=== PATIENT | female | born 1965 | race Caucasian/White ===

== ENCOUNTER 2019-10-07 10:25 | Inpatient (IN) | payer BC, MEDICAID ==
[~2019-10-07] VITALS: Ht 162.6 cm; Wt 80.0 kg
[~2019-10-07 10:25] MED LIST: ALBU8.5H8 INH; BENA10TA75 PO; CALC-235 PO; CETI10CA19 PO; FAMO20TA8 PO; FLUT16SP26 BOTHNARES; LACT1CAP26 PO; LEVO750T46 PO; METF-436 PO; METR-159 PO; OMEP40CA13 PO; ONDA4TAB12 PO; OXYC-134 PO; PANT-47 PO; VITA1CAP19 PO
[2019-10-07 11:12] LABS: BASOPHILS % (AUTO) 0.7 % (0-1); EOSINOPHILS # (AUTO) 0.1 X10'3 (0-0.9); EOSINOPHILS % (AUTO) 1.1 % (0-6); HEMATOCRIT 45.7 % (35.0-45.0); HEMOGLOBIN 15.8 g/dl (12.0-16.0); LYMPHOCYTES # (AUTO) 1.9 X10'3 (1.1-4.8); LYMPHOCYTES % (AUTO) 31.6 % (21-51); MEAN CORPUSCULAR HGB CONC 34.5 g/dL (33.0-36.5); MEAN CORPUSCULAR VOLUME 104.3 FL (78-98); MEAN PLATELET VOLUME 6.9 FL (7.4-10.4); MONOCYTES # (AUTO) 0.6 X10'3 (0-0.9); MONOCYTES % (AUTO) 10.1 % (2-12); NEUTROPHILS # (AUTO) 3.4 X10'3 (1.8-7.7); NEUTROPHILS % (AUTO) 56.5 % (42-75); PLATELET COUNT 215 X10'3 (140-440); RED BLOOD COUNT 4.38 X10'6 (4.20-5.60); RED CELL DISTRIBUTION WIDTH 13.3 % (11.5-14.5)
[2019-10-07 11:24] LABS: CLARITY,URINE SLIGHTLY CLOUDY (Clear); COLOR,URINE YELLOW (Yellow); GLUCOSE, URINE NEGATIVE (Neg); KETONES,URINE NEGATIVE (Neg); LEUKOCYTE ESTERASE ,URINE NEGATIVE (Neg); NITRITES, URINE NEGATIVE (Neg); OCCULT BLOOD,URINE NEGATIVE (Neg); PROTEIN,URINE NEGATIVE (Neg); UROBILINOGEN,URINE 0.2 E.U/dL (0.2-1.0)
[2019-10-07 11:24] LABS: PARTIAL THROMBOPLASTIN TIME 28 SECONDS (22-32)
[2019-10-07 11:28] LABS: ALANINE AMINOTRANSFERASE 24 U/L (12-78); ALBUMIN 3.8 G/DL (3.4-5.0); ALBUMIN/GLOBULIN RATIO 1.1 (1.1-1.5); ALKALINE PHOSPHATASE 84 IU/L (46-116); ANION GAP 6 (8-16); ASPARTATE AMINO TRANSFERASE 24 U/L (10-37); BILIRUBIN,TOTAL 0.4 MG/DL (0.1-1.0); BLOOD UREA NITROGEN 15 MG/DL (7-18); BUN/CREATININE RATIO 18.1 (6.6-38.0); CALCIUM 9.2 MG/DL (8.5-10.1); CHLORIDE 104 MMOL/L (99-107); CREATININE 0.83 MG/DL (0.40-0.90); GLUCOSE 96 MG/DL (70-104); POTASSIUM 4.3 MMOL/L (3.5-5.1); SODIUM 142 MMOL/L (135-145); TOTAL CARBON DIOXIDE 32.3 MMOL/L (24-32); TOTAL PROTEIN 7.3 G/DL (6.4-8.2); eGFR 71 ML/MIN
[2019-10-07 11:30] LABS: TROPONIN I < 0.04 NG/ML (0.0-0.05)
[2019-10-07 11:38] LABS: UA COLLECTION TYPE CLN CATCH MIDSTREAM
[2019-10-07 11:40] LABS: SQUAMOUS EPITHELIAL CELL,UR MODERATE /LPF (FEW)
[2019-10-07 11:41] LABS: BACTERIA,URINE FEW /HPF (Neg)
[2019-10-07 11:42] LABS: WBC,URINE 0-4 /HPF (0-4)
[2019-10-07 11:47] LABS: RBC,URINE 0-2 /HPF (0-2)
[2019-10-07] MEDS ORDERED: LACT1CAP65 PO (13:47)
[2019-10-07] MEDS ORDERED: CHOL100046 PO (13:47)
--- NOTE | 2019-10-07 13:57 | NUR ---
Pt ambulatory with steady gait to the restroom to void urine.
--- NOTE | 2019-10-07 15:08 | NUR ---
Pt is awaiting tele stroke evaluation by Neurologist. Telestroke monitor at the foot of the bedside.
--- NOTE | 2019-10-07 15:20 | NUR ---
Telestroke evaluation is being completed at this time with
--- NOTE | 2019-10-07 15:33 | NUR ---
Awaiting admission orders now that the tele stroke evaluation has been completed. Pt is aware the plan of care includes admission and further testing of the brain and vascular components of the brain per the Tele neurologist.
--- NOTE | 2019-10-07 17:55 | NUR ---
PAGER ID: [phone] MESSAGE: [id number] [place] [id number]- her med rec is complete, please address. Pt is doing well with no deficits at this time
[2019-10-07 18:00] VITALS: BP 124/61
[2019-10-07] MEDS ORDERED: magnesium hydroxide 30ml (MOM) UD suspension PO PRN (18:00)
[2019-10-07] MEDS ORDERED: magnesium 4gm in 100ml NS 100 ML IV PRN (18:00)
[2019-10-07] MEDS ORDERED: diphenhydrAMINE 25mg capsule PO PRN (18:00)
[2019-10-07] MEDS ORDERED: mag hydrox/Alum hydrox/simeth 30ml oral suspension PO PRN (18:00)
[2019-10-07] MEDS ORDERED: potassium Cl 20 mEq SR tablet PO PRN ×2 (18:00)
[2019-10-07] MEDS: K and/or MAG REPLACEMENT MC SCH (18:00)
[2019-10-07] MEDS ORDERED: magnesium Cl slow-release 64mg tablet PO PRN (18:00)
[2019-10-07] MEDS ORDERED: magnesium 2GM in 50ml NS 50 ML IV PRN (18:00)
[2019-10-07] MEDS ORDERED: potassium CL 10mEq/100ml bag 100 ML IV PRN ×2 (18:00)
[2019-10-07] MEDS ORDERED: ondansetron/PF 4mg/2ml inj IV PRN (18:00)
[2019-10-07 18:08] LABS: HEMOGLOBIN A1C 5.5 % (4.5-6.2)
[2019-10-07] MEDS ORDERED: aspirin 325mg tablet PO ONE (18:15)
[2019-10-07] MEDS: normal saline 1000ml 1,000 ML IV SCH (19:18)
[2019-10-07] MEDS: heparin, porcine 5000 units/ml vial SQ SCH (19:24)
[2019-10-07 20:00] VITALS: BP_SYST 132; BP_SYST 137; BP_SYST 146; BP_DIAS 84; BP_DIAS 88; BP_DIAS 92
[2019-10-07 22:00] VITALS: BP 132/84
[2019-10-08 02:05] VITALS: BP 127/63
[2019-10-08] MEDS: normal saline 1000ml 1,000 ML IV SCH (04:42)
[2019-10-08 06:00] VITALS: BP 128/71
[2019-10-08 06:11] LABS: BASOPHILS % (AUTO) 0.6 % (0-1); EOSINOPHILS # (AUTO) 0.1 X10'3 (0-0.9); EOSINOPHILS % (AUTO) 2.7 % (0-6); HEMATOCRIT 43.3 % (35.0-45.0); HEMOGLOBIN 14.8 g/dl (12.0-16.0); LYMPHOCYTES # (AUTO) 1.5 X10'3 (1.1-4.8); LYMPHOCYTES % (AUTO) 29.1 % (21-51); MEAN CORPUSCULAR HEMOGLOBIN 35.7 PG (27.0-31.0); MEAN CORPUSCULAR HGB CONC 34.2 g/dL (33.0-36.5); MEAN CORPUSCULAR VOLUME 104.2 FL (78-98); MEAN PLATELET VOLUME 7.1 FL (7.4-10.4); MONOCYTES # (AUTO) 0.6 X10'3 (0-0.9); MONOCYTES % (AUTO) 10.9 % (2-12); NEUTROPHILS # (AUTO) 2.9 X10'3 (1.8-7.7); NEUTROPHILS % (AUTO) 56.7 % (42-75); PLATELET COUNT 185 X10'3 (140-440); RED BLOOD COUNT 4.16 X10'6 (4.20-5.60); RED CELL DISTRIBUTION WIDTH 13.4 % (11.5-14.5); WHITE BLOOD COUNT 5.1 X10'3 (4.5-11.0)
[2019-10-08 06:25] LABS: ALANINE AMINOTRANSFERASE 20 U/L (12-78); ALBUMIN 2.9 G/DL (3.4-5.0); ALKALINE PHOSPHATASE 64 IU/L (46-116); ANION GAP 5 (8-16); ASPARTATE AMINO TRANSFERASE 18 U/L (10-37); BILIRUBIN,TOTAL 0.4 MG/DL (0.1-1.0); BLOOD UREA NITROGEN 15 MG/DL (7-18); BUN/CREATININE RATIO 17.2 (6.6-38.0); CALCIUM 8.5 MG/DL (8.5-10.1); CHLORIDE 109 MMOL/L (99-107); CHOL/HDL RATIO 1.8 (0.00-4.99); CHOLESTEROL 148 MG/DL (0-200); CREATININE 0.87 MG/DL (0.40-0.90); GLUCOSE 93 MG/DL (70-104); HDL CHOLESTEROL 84 MG/DL (35-60); LDL CHOLESTEROL 54 MG/DL (50-100); MAGNESIUM 1.8 MG/DL (1.5-2.4); PHOSPHORUS 3.1 MG/DL (2.3-4.5); POTASSIUM 4.6 MMOL/L (3.5-5.1); SODIUM 144 MMOL/L (135-145); TOTAL CARBON DIOXIDE 30.1 MMOL/L (24-32); TOTAL PROTEIN 5.8 G/DL (6.4-8.2); TRIGLYCERIDES 51 MG/DL (20-135); eGFR 67 ML/MIN
--- NOTE | 2019-10-08 06:33 | NUR ---
Patient in room [facility] 4023[facility]. I have received report from KAMALA ORTIZ and had the opportunity to ask questions and assume patient care.
[2019-10-08 08:00] VITALS: BP_SYST 145; BP_SYST 146; BP_DIAS 74; BP_DIAS 83
[2019-10-08] MEDS ORDERED: lactobacillus rhamnosus 10,000 MMU CELLS/CAPSULE PO SCH (08:00)
[2019-10-08] MEDS ORDERED: lisinopril 10 MG tablet PO SCH (08:00)
[2019-10-08] MEDS ORDERED: vitamin D (cholecalciferol) 1,000 unit tablet PO SCH (08:00)
[2019-10-08] MEDS ORDERED: vitamin B comp w/Vit. C tab 1 TAB TABLET PO SCH (08:00)
[2019-10-08] MEDS ORDERED: aspirin 81mg tablet.DR PO SCH (08:00)
[2019-10-08] MEDS ORDERED: pantoprazole 40mg Tablet.DR PO SCH (08:00)
[2019-10-08] MEDS: K and/or MAG REPLACEMENT MC SCH (08:00)
[2019-10-08] MEDS ORDERED: famotidine 20mg tablet PO SCH (08:00)
[2019-10-08] MEDS ORDERED: multivitamins, therapeutics tablet PO SCH (08:00)
[2019-10-08] MEDS ORDERED: cetirizine 10mg tablet PO SCH (08:00)
[2019-10-08] MEDS: heparin, porcine 5000 units/ml vial SQ SCH (08:49)
[2019-10-08 10:00] VITALS: BP 163/77
[2019-10-08] MEDS ORDERED: pneumococcal 23-VAL P-sac vacc 25 mcg/0.5ml vial IMVAC ONE (10:00)
--- NOTE | 2019-10-08 13:51 | NUR ---
DM Consult: A1C <7 and not appropriate for DM ed at this time. Addendum: 10/08/19 at [address] Amended: Links added.
[2019-10-08 14:00] VITALS: BP 133/77
[2019-10-08] MEDS ORDERED: ASPI81TA52 PO (15:16)
== END 2019-10-08 17:30 | disposition home or self-care (01) | DRG 312 ==
LOC: ER 10:26 → ED HOLD 15:39 → ORTHO 4S 16:28
PROVIDERS: ADMIT Family Medicine; ATTEND Family Medicine
PROC: 4A00X4Z Measurement of Central Nervous Electrical Activity, External Approach (ICD-10-PCS; principal; 2019-10-08)
DX: R55 Syncope and collapse (principal); R53.1 Weakness; E11.9 Type 2 diabetes mellitus without complications; F10.20 Alcohol dependence, uncomplicated; F17.200 Nicotine dependence, unspecified, uncomplicated; I10 Essential (primary) hypertension; K21.9 Gastro-esophageal reflux disease without esophagitis; I65.23 Occlusion and stenosis of bilateral carotid arteries; M54.9 Dorsalgia, unspecified; J45.909 Unspecified asthma, uncomplicated; G89.4 Chronic pain syndrome; Z88.6 Allergy status to analgesic agent; Z88.0 Allergy status to penicillin; Z88.8 Allergy status to other drugs, medicaments and biological substances; Z71.6 Tobacco abuse counseling; Z86.74 Personal history of sudden cardiac arrest; Z80.0 Family history of malignant neoplasm of digestive organs
CPT/HCPCS: 36415; 70450; 70544; 70551; 71045; 80053; 80061; 81001; 82948; 83036; 83735; 84100; 84484; 85025; 85610; 85651; 85730; 87081; 92508; 92616; 93005; 93306; 93880; 95816; 97161; 97530; 99285; G0378; J1644; J7030

== ENCOUNTER 2020-11-12 20:40 | Emergency (ER) | payer BC, OTHER ==
[~2020-11-12] VITALS: Ht 162.6 cm; Wt 79.1 kg
[~2020-11-12 20:40] MED LIST changes: +ASPI81TA52 PO; -CETI10CA19 PO; +CHOL100046 PO; -FAMO20TA8 PO; -LACT1CAP26 PO; +LACT1CAP65 PO; -LEVO750T46 PO; -METF-436 PO; -METR-159 PO; -OMEP40CA13 PO; -ONDA4TAB12 PO; -OXYC-134 PO
--- NOTE | 2020-11-12 21:09 | NUR ---
BED ALARM PLACED ON PT
[2020-11-12 21:23] LABS: BASOPHILS % (AUTO) 0.7 % (0-1); EOSINOPHILS # (AUTO) 0.1 X10'3 (0-0.9); EOSINOPHILS % (AUTO) 2.9 % (0-6); HEMATOCRIT 45.5 % (35.0-45.0); HEMOGLOBIN 15.3 g/dl (12.0-16.0); LYMPHOCYTES # (AUTO) 2.4 X10'3 (1.1-4.8); LYMPHOCYTES % (AUTO) 54.1 % (21-51); MEAN CORPUSCULAR HGB CONC 33.7 g/dL (33.0-36.5); MEAN CORPUSCULAR VOLUME 103.9 FL (78-98); MEAN PLATELET VOLUME 6.7 FL (7.4-10.4); MONOCYTES # (AUTO) 0.6 X10'3 (0-0.9); MONOCYTES % (AUTO) 13.9 % (2-12); NEUTROPHILS # (AUTO) 1.3 X10'3 (1.8-7.7); NEUTROPHILS % (AUTO) 28.4 % (42-75); PLATELET COUNT 167 X10'3 (140-440); RED BLOOD COUNT 4.38 X10'6 (4.20-5.60); RED CELL DISTRIBUTION WIDTH 14.9 % (11.5-14.5); WHITE BLOOD COUNT 4.4 X10'3 (4.5-11.0)
[2020-11-12 21:40] LABS: ALANINE AMINOTRANSFERASE 45 U/L (12-78); ALBUMIN 3.6 G/DL (3.4-5.0); ALBUMIN/GLOBULIN RATIO 1.1 (1.1-1.5); ALKALINE PHOSPHATASE 72 IU/L (46-116); ANION GAP 9 (8-16); ASPARTATE AMINO TRANSFERASE 47 U/L (10-37); BILIRUBIN,TOTAL 0.2 MG/DL (0.1-1.0); BLOOD UREA NITROGEN 13 MG/DL (7-18); BUN/CREATININE RATIO 14.3 (6.6-38.0); CALCIUM 8.7 MG/DL (8.5-10.1); CHLORIDE 106 MMOL/L (99-107); CREATININE 0.91 MG/DL (0.40-0.90); GLUCOSE 86 MG/DL (70-104); POTASSIUM 3.7 MMOL/L (3.5-5.1); SODIUM 145 MMOL/L (135-145); TOTAL CARBON DIOXIDE 29.9 MMOL/L (24-32); eGFR 64 ML/MIN
--- NOTE | 2020-11-12 21:40 | NUR ---
pt ambulated to bathom and back independently . steady gait , will reassess in 1 [address] as requested [address] nichols
[2020-11-12 21:41] LABS: ETHANOL 0.295 GM/DL (0.0-0.010); LIPASE 222 U/L (73-393)
[2020-11-12 21:53] LABS: URINE HCG NEGATIVE (NEG)
[2020-11-12 21:59] LABS: CLARITY,URINE CLEAR (Clear); COLOR,URINE YELLOW (Yellow); GLUCOSE, URINE NEGATIVE (Neg); KETONES,URINE NEGATIVE (Neg); LEUKOCYTE ESTERASE ,URINE NEGATIVE (Neg); NITRITES, URINE NEGATIVE (Neg); OCCULT BLOOD,URINE NEGATIVE (Neg); PROTEIN,URINE NEGATIVE (Neg); UROBILINOGEN,URINE 0.2 E.U/dL (0.2-1.0)
[2020-11-12 22:11] LABS: UA COLLECTION TYPE CLN CATCH MIDSTREAM
[2020-11-12 22:39] LABS: TOTAL CELLS COUNTED 100
[2020-11-12 22:40] LABS: PLATELET ESTIMATE NORMAL
--- NOTE | 2020-11-12 22:50 | NUR ---
pt sat up and offered water and educated that she will be having to walk the hallway again to assess gait prior to discharge . pt stated she will get up to walk soon
[2020-11-12 23:24] VITALS: BP 123/64
== END 2020-11-12 23:30 | disposition home or self-care (01) ==
LOC: ER 20:40
DX: F10.929 Alcohol use, unspecified with intoxication, unspecified (principal); I10 Essential (primary) hypertension; J45.909 Unspecified asthma, uncomplicated; E11.9 Type 2 diabetes mellitus without complications; Z88.0 Allergy status to penicillin; Z88.1 Allergy status to other antibiotic agents; Z88.6 Allergy status to analgesic agent; Z88.8 Allergy status to other drugs, medicaments and biological substances; Z79.82 Long term (current) use of aspirin; Z79.899 Other long term (current) drug therapy
CPT/HCPCS: 36415; 80053; 80320; 81003; 81025; 83690; 85007; 85025; 93005; 99284